=== PATIENT | female | born 1940 | race Caucasian/White ===

== ENCOUNTER 2021-03-26 06:59 | Inpatient (IN) ==
--- NOTE | 2021-03-26 08:14 | History & Physical Bridge Note ---
Date of Service March 26, 2021 History & Physical Bridge Note I have examined the patient, reviewed the History & Physical and in the interval since the performance of the History & Physical I have noted the following changes of clinical significance: no changes noted I have explained the risk, benefit and intent of the cardiac catheterization to her and she is willing to proceed.
--- NOTE | 2021-03-26 08:14 | Pre Anesthesia Assessment ---
Date of Service March 26, 2021 Pre Sedation Assessment Vital Signs Temp Pulse Resp BP Pulse Ox 03/26/21 07:24 36.7 C 57 L 16 170/85 H 98 Pre-Sedation Airway Assessment Smoking Status: Never smoker Hx Sleep Apnea: No Short, Thick Neck: No Thyromental Distance: > or= 3.5 Finger Breadths Oral Cavity: + WNL Mallampati Class: III ASA: ASA3 NPO Status Date of Last Intake of Fluids: 03/25/21 Time of Last Intake of Fluids: 22:00 Date of Last Intake of Solid Food: 03/25/21 Time of Last Intake of Solid Foods: 22:00 Notes The planned sedation has been discussed with the patient. Informed Consent was obtained. I have identified the patient, determined the appropriateness of s edation and have assessed the patient immediately prior to the procedure. All medicine(s) and interventions are by my order.
[2021-03-26] MEDS ORDERED: SODIUM CHLORIDE 0.9% 1000ML 1,000 ML IV SCH ×2 (08:15→11:30)
[2021-03-26] MEDS ORDERED: MIDAZOLAM HCL 1 MG/ML 2ML VIAL ONE ×3 (08:20→09:51)
[2021-03-26] MEDS ORDERED: HEPARIN (PORCINE) 1000 UNIT/ML 10 ML (CATH LAB USE ONLY) ONE (08:20)
[2021-03-26] MEDS ORDERED: fentaNYL citrate 100 MCG/2 ML VIAL ONE (08:20)
[2021-03-26] MEDS ORDERED: NITROGLYCERIN/D5W 100MCG/ML 20ML SYR ONE (08:20)
[2021-03-26] MEDS ORDERED: niCARdipine HCL INJ 2.5 MG/ML 10 ML AMP ONE (08:20)
--- NOTE | 2021-03-26 09:06 | Cardiac Catheterization ---
Date of Service March 26, 2021 Cardiac Cath Report Cardiac Cath Report Procedure: 1. Left heart catheterization 2. Coronary angiography 3. Left ventriculogram History: This is a 81-year-old female with a history of paroxysmal atrial fibrillation and coronary artery disease. She underwent a cardiac catheterization in 2019. She had an FFR completed on the LAD which was negative. She also had coronary artery disease and a ramus branch from the left circumflex artery as well as the first OM. Medical therapy was decided. She has been having atypical chest pain recently and underwent a pharmacologic nuclear stress test that revealed ischemia in the inferior lateral myocardium consistent with the circumflex distribution. She was referred for cardiac catheterization. Procedure summary: After informed consent was obtained the patient was brought to the cardiac catheterization lab where access was obtained using a retrograde Salinger technique from the right radial artery. Preformed 5 Czech diagnostic catheters were utilized for the coronary angiograms. A 5 Czech pigtail catheter was utilized for the left heart pressures and left ventriculogram. Following the procedure the patient underwent coronary intervention. ACC data: Start time 8:30 AM End time 8:52 AM Opening aortic pressure 120/50 Closing aortic pressure 148/56 LV pressure 128/10 Sedation 2 mg intravenous Versed IV fluid 50 cc normal saline Contrast 82 cc Optiray Fluoroscopy time 3 minutes Radiation 544 mGy DAP 54.85 Doe per centimeter squared Left dominant system AUC score 9 Coronary angiography: Selective injections of the left coronary artery revealed the left main trunk to be patent. There is a large ramus branch from the left circumflex which is subtotaled proximally the left circumflex artery is dominant. The first OM has a subtotaled proximal segment. The remainder the left circumflex is widely patent. The LAD extends to the apex of the heart. The LAD in its proximal and mid segment is diffusely diseased reaching approximately a 80 to 90% stenoses. The remainder the LAD is widely patent. Injections of the right coronary artery reveal it to be nondominant and widely patent. Left ventriculogram: Injections into the left ventricle reveal normal LV function with an estimated left ventricular ejection fraction of around 60%. The mitral valve is competent. The aortic root and ascending aorta have normal morphology. Summary: When comparing this study to the previous study of 2019 there is progression in the proximal and mid disease of the LAD as well as the first marginal branch. The ramus artery is unchanged. Recommendations: The cardiac catheterization films will be reviewed for possible coronary intervention and stenting of the left circumflex and LAD.
[2021-03-26] MEDS ORDERED: CLOPIDOGREL BISULFATE 300 MG TAB ONE (10:01)
--- NOTE | 2021-03-26 11:17 | Hospitalist Consultation ---
Date of Consultation March 26, 2021 Assessment & Plan (1) CAD (coronary artery disease): - S/p cardiac cath by Dr. Loredo on 03/26/2021, intervention by Dr. Dolan with PCI to proximal LAD and ostial OM2. - Continue BB, CCB, Statin - Start asa 81 mg daily and plavix daily - Cardiology consulted- appreciate recommendations (2) Atrial fibrillation: -Rate controlled on diltiazem 180 daily, sotalol 80 mg BID, anticoagulated with Eliquis 5 mg BID - Monitor set to alarm at 45 bmp as her HR is typically in the 50s per patient report. (3) Hx of hyperlipidemia: -Continue pitavastatin 2 g daily and icosapent ethyl cap daily, for CAD (4) Anxiety: - Cont lorazepam 0.5 mg at bedtime (5) Acid reflux: -Continue famotidine (6) Hypothyroidism: -Continue levothyroxine (7) Asthma: - Continue inhalers (8) DVT prophylaxis: - teds, anticoagulation with Eliquis, Plavix, baby aspirin as above CODE: Full code Dispo: From home, likely to remain in the hospital x 1-2 days Supervising Physician Co-Signing Physician Notes Patient seen and examined by me, care coordinated with Radha Ryan PA-C, please refer to note above for further detail. Patient is a 81-year-old female, with history of CAD, pAfib s/p ablation, hypothyroidism, who had abnormal stress test, now presented for cardiac cath and is status post stents to LAD and circumferential artery. She feels well, currently sitting up in bed, alert and oriented answering questions appropriately, eating lunch. She denies any chest pain or shortness of breath dizziness or lightheadedness. She is slightly bradycardic, in the 50s. Heart sounds otherwise regular, lung sounds clear to auscultation currently, without any wheezing rhonchi or crackles. Abdomen is soft nontender nondistended. Patient moves all 4 extremities without any difficulty. Skin is warm and dry and well-perfused. Continue home medications, in addition aspirin Plavix, and will also add her home inhalers. Continue to closely monitor. Further care per cardiology. MD Alexis History of Present Illness Reason for Consultation: Medical management Requesting Physician: Dr. Loredo Attending Physician: Javan Loredo DO History of Present Illness This is a 81 yo F with PMHx of atrial fibrillation, CAD, GERD, hypothyroidism, and anxiety. Mrs. Brice has previously underwent a cardiac catheterization in 2019. She had an FFR completed on the LAD which was negative as well as CAD in a ramus branch from the left circumflex artery is as well as the first OM. At that point medical therapy was decided upon. She had been having indigestion and found to have a thrush infection in her mouth and esophagus, which was treated, but with continued atypical chest pain. She was then referred for a pharmacological nuclear stress test which revealed ischemia in the inferior lateral myocardium consistent with circumflex distribution and prompted this cardiac cath. Pt is now s/p cardiac catheterization by Dr. Loredo on 03/26/2021, intervention by Dr. Dolan with placement of stents in the LAD and circumflex artery. She is doing well, no acute complaints currently. Pt denies chest pain, shortness of breath, abdominal pain, n/v/d/c. She feels she needs her Encruse inhaler due to some wheezing currently. She has been rinsing out her mouth after inhaler use since having the thrush infection. Allergies Allergy/AdvReac Type Severity Reaction Status Date / Time fenofibrate [From Antara] Allergy Unknown PER RECORDS Verified 04/07/20 11:16 ondansetron [From Zofran] Allergy Unknown PER RECORDS Verified 04/07/20 11:16 Sulfa (Sulfonamide Allergy Unknown "FIXED Verified 04/07/20 11:16 Antibiotics) DRUG REACTION" tamsulosin [From Flomax] Allergy Unknown AFIB AND Verified 04/07/20 11:16 ARRYTHMIA trazodone Allergy Unknown A.FIB/PALPI Verified 04/07/20 11:16 TATIONS Latex, Natural Rubber Allergy Rash Verified 04/07/20 11:16 amoxicillin [From Augmentin] AdvReac Unknown SEE NOTES Verified 04/07/20 11:16 clavulanic acid AdvReac Unknown SEE NOTES Verified 04/07/20 11:16 [From Augmentin] codeine AdvReac Unknown Nausea Verified 04/07/20 11:16 ezetimibe [From Zetia] AdvReac Unknown LEG CRAMPS Verified 04/07/20 11:16 levofloxacin [From Levaquin] AdvReac Unknown Nausea Verified 05/18/20 11:16 STATINS Allergy Unknown A FIB AND Uncoded 04/07/20 11:16 LEG CRAMPS VICRAYL AdvReac Unknown "SKIN Uncoded 04/07/20 11:16 PUSTULES" Home Medications Medication Instructions Recorded Confirmed Type estradiol [Estrace] 1 dose VAGINAL 3XWK 10/06/18 03/26/21 History levothyroxine 50 mcg PO DAILY 10/06/18 03/26/21 History lorazepam 0.5 mg PO HS 10/06/18 03/26/21 History solifenacin [Vesicare] 0.5 tab PO QAM 10/06/18 03/26/21 History zolpidem [Ambien] 1 tab PO HS 10/06/18 03/26/21 History Eliquis 5 mg PO BID 11/02/19 03/26/21 History icosapent ethyl 1 gram capsule 1 gm PO ONCE cap 04/07/20 03/26/21 History sotalol 80 mg tablet 80 mg PO BID 04/07/20 03/26/21 History DILT-CD 180 mg PO DAILY 03/26/21 03/26/21 History Livalo 2 mg PO DAILY 03/26/21 03/26/21 History azelastine 2 spray INHALATION BID 03/26/21 03/26/21 History calcium carbonate-vitamin D3 2 tab PO DAILY 03/26/21 03/26/21 History [Caltrate 600 plus D] cetirizine [Zyrtec] 10 mg PO DAILY 03/26/21 03/26/21 History famotidine 20 mg PO BID 03/26/21 03/26/21 History ipratropium bromide 2 puff INHALATION QID 03/26/21 03/26/21 History oxybutynin chloride 5 mg PO DAILY 03/26/21 03/26/21 History umeclidinium [Incruse Ellipta] 62.5 mcg INHALATION DAILY 03/26/21 03/26/21 History vit C-E-zinc fc-ycij-rey-zeax 1 cap PO DAILY 03/26/21 03/26/21 History [ICaps AREDS2] Patient History Medical History (Updated 03/26/21 @ 11:49 by Sherron Ryan PA-C) Acid reflux Anxiety Aortic regurgitation MILD Atrial fibrillation PAROXYSMAL; NO RECURRENCES ON LOOP RECORDS; ON FLECANIDE- PATIENT DECLINES "BLOOD THINNERS" Hx of hyperlipidemia Mitral regurgitation MILD Obesity Surgical History History of appendectomy History of colonoscopy History of hand surgery MULTIPLE History of tonsillectomy Family History (Updated 04/07/20 @ 13:00 by Zaynab Lilly) Other Heart disease Denies family history of Diabetes Lung disease Cancer Social History (Updated 04/07/20 @ 13:01 by Zaynab Lilly) Smoking Status: Never smoker packs per day: 1; Cigarettes Per Day: QUIT 1967; Hx Alcohol Use: No Hx Substance Use: No Preferred Language: Cameroonian Communication Ability: Effective Hydraulic Dredge Operator Required: No Beliefs That Will Affect Care: None Current Living Situation: Spouse Other Information That Helps Us Care for You: No Feels Safe at Home: Yes Safety Concerns: Feels Safe At This Time Assistive Devices: None Review of Systems Review of Systems: Constitutional: No fever, sweats or chills Eyes: No diplopia, no worsening or blurred vision ENT: normal hearing, no trouble swallowing Respiratory: No cough, sputum, dyspnea at rest or on exertion Cardiovascular: No chest pain, tightness or palpitations Abdomen: No pain, nausea, vomiting, diarrhea or constipation Musculoskeletal: No joint pain, calf pain, swelling Neurologic: No weakness, numbness/tingling, or balance problems Psychiatric: No anxiety or depression Skin: No rash or itch Physical Exam Physical Exam: General: awake, alert, no apparent distress Head: Normocephalic, atraumatic ENT: PERRL, EOMI, no pharyngeal exudate, mucous membranes moist Chest: Clear to auscultation, on room air, no adventitious breath sounds Cardiac: +Bradycardic with HR 51-53 at bedside, no murmur, no JVD, normal peripheral pulses, good capillary refill Abdominal: NABS x 4 quadrants, soft, nondistended, nontender to palpation, no rebound or guarding Extremities: R wrist TK band in place. Otherwise normal inspection, no peripheral edema or erythema, calfs nontender to palpation Psych: Normal mood and affect Neuro: AAO x 3, strength intact bilaterally and rated 5/5, no motor deficits, speech is clear, no peripheral sensory deficits Results & Data Results & Data ([facility]) Vital Signs (Past 12 Hours) Vital Signs Temp Pulse Pulse Resp BP BP Pulse Ox 03/26/21 10:48 36.5 C 52 L 14 181/73 H 94 03/26/21 10:30 54 L 18 180/70 H 96 03/26/21 10:15 55 L 18 192/65 H 96 03/26/21 07:24 36.7 C 57 L 16 170/85 H 98
[2021-03-26] MEDS ORDERED: ACETAMINOPHEN 325 MG TAB PO PRN (11:25)
--- NOTE | 2021-03-26 11:37 | Post Operative Brief Note ---
Cardiology Brief Post Op Date of Surgery March 26, 2021 Pre & Post Diagnosis Operation Date: 03/26/21 08:00 <No data on this case meets the specified criteria> Procedure -- Machine Records Units Supervisor Davie Dolan MD Shirrer Gibson Anderson Estimated Blood Loss 10 Findings Consistent with Post-Op Diagnosis PCI to proximal LAD (2.5 x 26 [place]; post-dilated with 3.0 NC). PCI to ostial OM2 (3.0 x 12 Tommy). Fluids -- Specimens Specimen Description: -- Anesthesia Type RN Sedation Complications none Disposition Accompanied Patient To Recovery: No Disposition: PCU Overlapping Procedure I was present for: the critical portions of procedure. I was immediately available: during the entire case. Back up surgeon: was not required during procedure.
[2021-03-26] MEDS: IPRATROPIUM BROMIDE HFA INHALER INH SCH ×2 (13:31→19:00)
[2021-03-26] MEDS: UMECLIDINIUM BROMIDE 62.5MCG/BLISTER 7 PUFFS/INHALER INH SCH (13:34)
--- NOTE | 2021-03-26 13:38 | Cardiac Catheterization ---
[facility] Data: Edge [place] Cardiac Status Clinical evaluation leading to the procedure CAD Presenation: Positive Stress Test and Unstable angina Anginal Classification: CCS III Heart Failure: No Cardiogenic Shock within 24 Hours: No Cardiac Arrest within 24 Hours: No Imaging Studies Past 6 Months: Yes Stress Studies Past 6 Months: Yes Stress Echocardiogram: Yes - Positive and Risk/Extent of Ischemia (Intermediate) Diagnostic Physicians Name: Davie Dolan MD Status: Elective Closure Device Percutaneous Entry Location: Radial Closure Device: Radial Band Recommendations: PCI without planned CABG PCI Indication: + Stress Test Lesion Segment Name: OM2 Culprit Artery: Yes Stenosis Prior to Rx (%): 95 Chronic Total Occlusion: No IVUS: No FFR: No Pre-Procedure ANGIE Flow: 3 Previously Treated Lesion: No Lesion Complexity: Non-High/Non-C Lesion Length (mm): 10 Thrombus Present: No Bifurcation Lesion: Yes Guidewire Across Lesion: Stenosis Post-Procedure (%): 0 Post-Procedure ANGIE Flow: 3 Devices(s) Deployed: Yes Yes Intraprocedure Events Significant Disection: No Perforation: No Cardiac Cath Procedure Full Procedure Date March 26, 2021 Pre-Procedure Diagnosis Pre-Procedure Diagnosis: Positive Stress Test and CAD AUC Score AUC Score: 7 Post-Procedure Diagnosis Post-Procedure Diagnosis: Severe CAD and Successful PCI Procedure(s) Performed Procedure(s) Performed: Coronary Angiography, Drug Eluting Stent and IVUS Septic Tank Service Technician Davie Dolan MD Play Reader(s) Tom Arreaga Estimated Blood Loss Estimated Blood Loss: 15 Medication(s) Medication(s): Fentanyl, Heparin, Lidocaine 1%, Nicardipine, Nitroglycerin and Versed Summary of Findings Indication: Accelerating angina, abnormal stress test Access: 6 Fr right radial artery Catheters: EBU 3.5 guide, telescope support catheter Findings: For full details of patient's coronary angiography please see cath report dictated by Dr. Loredo. Briefly, patient found to have multivessel disease including a 80% proximal to mid LAD stenosis, and 95% ostial OM 2 stenosis. Decision to proceed with PCI. -- PCI -- Antithrombotic therapy: Heparin, clopidogrel Procedure: Left main cannulated with EBU 3.5 guide Gas Meter Reader 50 wire passed across lesion into distal LAD Proximal to mid LAD lesion predilated with 2.5 compliant balloon [place] IVUS catheter placed into mid LAD. Pullback revealed severe mildly calcified disease extending from mid segment almost back to ostium. Left main without significant disease. Dilated lesion stented with 2.5 x 26 mm Tommy drug-eluting stent Stent post-dilated with 3.0 noncompliant balloon IC vasodilators administered for spasm Post procedure ANGIE 3 flow, stent well expanded with minimal residual stenosis and no apparent cardiac complications. Gas Meter Reader 50 wire redirected into circumflex and across to OM 2 stenosis Proximal OM 2 stenosis dilated with 2.5 balloon Second airplane pilot chief 50 wire placed into distal AV groove circumflex 3.0 x 12 mm Tommy drug-eluting stent placed at OM2 ostium Stent postdilated with stent balloon IC vasodilators administered for spasm Post procedure ANGIE 3 flow, stent well expanded with minimal residual stenosis and no apparent cardiac complications. Arterial Closure: TR band Summary: 1. Successful PCI of proximal to mid LAD with single drug-eluting stent (2.5 x 26 mm Tommy; postdilated with 3.0 NC). 2. Successful PCI of ostial/proximal OM 2 with a single drug-eluting stent (3.0 x 12 mm Tommy). 3. Residual severe high OM1 disease Recommendations: To PCU for continued monitoring Loaded with clopidogrel 600 mg in Edge Roller Continue triple therapy with aspirin, clopidogrel, Eliquis for 1 week. Then continue dual therapy with clopidogrel, Eliquis for at least 6 months. Consult cardiac Rehab If refractory symptoms to antianginal therapy in the future could consider PCI to high OM1. Hemodynamics Rest Ao:: 148/56/95 Final Ao: 134/55/90 LV: 128/10 Recommendations Recommendations: PCI without planned CABG Specimens Specimens: None Radiation Exposure (mGy) 3301 Contrast (mls) 150 Fluids (cc crystalloids) Fluids (cc crystalloids): 180 Drains Drains: none Anesthesia moderate [id number] Procedural Complication(s) None Disposition PCU I attest to the content of the Intraoperative Record and any orders documented therein. Any exceptions are noted below. [facility] Card Cath Procedure Codes Therapeutic Services & Ancillary Proc Procedure 1: Cardiovascular Tx and Anc Procedures: 85148 IV Ultrasound (Coronary or Graft) Moderate Sedation Procedure 1: Sedation/Anesthesia: 04387 Mod Sedation by the same physician; Ea [id number] Minutes Stenting Procedure 1: Cardiovascular Stent Procedures: 94925 Perc transcatheter placement of intracoronary stent(s), with ang Procedure 2: Cardiovascular Stent Procedures: 29736 Ea addl branch of a major coronary artery PG Care Time/CCT Total # of Minutes Spent Total Time Spent with Patient: Total time spent is greater than 50% in coordination of care (as documented) at patient's floor/unit and/or counseling patient:
--- NOTE | 2021-03-26 13:40 | Electrocardiogram Report ---
Test Reason : Blood Pressure : / mmHG Vent. Rate : 053 BPM Atrial Rate : 053 BPM P-R Int : 198 ms QRS Dur : 088 ms QT Int : 486 ms P-R-T Axes : 084 031 -30 degrees QTc Int : 456 ms Sinus bradycardia Cannot rule out Old Anteroseptal infarct Nonspecific ST abnormality Inferior leads Abnormal ECG When compared with ECG of 17-OCT-2018 09:47, [place] interval has decreased Borderline Criteria for Anteroseptal infarct is now Present Nonspecific ST abnormality now present Inferior leads Confirmed by Tapan Tovar ([id number]) on 03/26/2021 1:39:54 PM Referred By: Reta Zheng Confirmed By:Tapan Tovar
[2021-03-26] MEDS ORDERED: LORazepam 0.5 MG TAB PO SCH (21:00)
[2021-03-26] MEDS: FAMOTIDINE 20 MG TAB PO SCH (21:24)
[2021-03-26] MEDS: SOTALOL HCL 80 MG TAB PO SCH (21:25)
[2021-03-26] MEDS: APIXABAN 5 MG TABLET PO SCH (21:25)
[2021-03-26] MEDS ORDERED: ZOLPIDEM TARTRATE 5 MG TAB PO PRN (23:25)
[2021-03-27] MEDS: IPRATROPIUM BROMIDE HFA INHALER INH SCH ×2 (07:04→11:09)
[2021-03-27 07:06] LABS: Basophils # (auto) 0.04 K/uL (0-0.2); Basophils % (auto) 0.5 %; Eosinophils # (auto) 0.19 K/uL (0-0.5); Eosinophils % (auto) 2.2 %; Hematocrit (blood only) 36.8 % (37-47); Hemoglobin 13.1 g/dL (12.0-16.0); Immature Granulocytes # (auto) 0.03 K/uL (0.00-0.02); Immature Granulocytes % (auto) 0.3 %; Lymphocytes # (auto) 2.03 K/uL (1.2-3.4); Lymphocytes % (auto) 23.3 %; Mean Corpuscular Hemoglobin 32.3 pg (25-34); Mean Corpuscular Hgb Conc 35.6 g/dL (32-36); Mean Corpuscular Volume 90.6 fL (80-100); Mean Platelet Volume 10.2 fL (7.4-10.4); Monocytes # (auto) 1.39 K/uL (0.11-0.59); Neutrophils # (auto) 5.03 K/uL (1.4-6.5); Neutrophils % (auto) 57.7 %; Platelet Count 209 K/uL (130-400); RDW Coefficient of Variation 13.4 % (11.5-14.5); RDW Standard Deviation 44.2 fL (36.4-46.3); Red Blood Count 4.06 M/uL (4.2-5.4); White Blood Count 8.71 K/uL (4.8-10.8)
[2021-03-27 07:33] LABS: BUN Creatinine Ratio 15.3 (10-20); Calcium 8.6 mg/dl (8.5-10.1); Creatinine Clr Calc Pharmacy 66.7 ml/min; Est GFR (African American) 86.5; Est GFR (Non-African American) 74.6; Potassium 3.5 mmol/L (3.5-5.1)
[2021-03-27] MEDS: APIXABAN 5 MG TABLET PO SCH (08:30)
[2021-03-27] MEDS: FAMOTIDINE 20 MG TAB PO SCH (08:31)
[2021-03-27] MEDS: UMECLIDINIUM BROMIDE 62.5MCG/BLISTER 7 PUFFS/INHALER INH SCH (08:31)
[2021-03-27] MEDS: SOTALOL HCL 80 MG TAB PO SCH (08:32)
[2021-03-27] MEDS ORDERED: dilTIAZem HCL 180 MG CAPCR PO SCH (09:00)
[2021-03-27] MEDS ORDERED: CLOPIDOGREL BISULFATE 75 MG TAB PO SCH (09:00)
[2021-03-27] MEDS ORDERED: ASPIRIN 81 MG ECTAB PO SCH (09:00)
--- NOTE | 2021-03-27 09:08 | Electrocardiogram Report ---
Test Reason : Blood Pressure : / mmHG Vent. Rate : 052 BPM Atrial Rate : 052 BPM P-R Int : 210 ms QRS Dur : 092 ms QT Int : 478 ms P-R-T Axes : 080 015 005 degrees QTc Int : 444 ms Sinus bradycardia with 1st degree A-V block Old Septal infarct (cited on or before 26-MAR-2021) Abnormal ECG When compared with ECG of 26-MAR-2021 10:26, T wave inversion no longer evident in Inferior leads Confirmed by Tapan Tovar ([id number]) on 03/27/2021 9:07:52 AM Referred By: Reta Zheng Confirmed By:Tapan Tovar
--- NOTE | 2021-03-27 09:55 | Cardiology Progress Note ---
Date of Service March 27, 2021 Assessment & Plan (1) CAD (coronary artery disease): (2) Atrial fibrillation: (3) Stented coronary artery: Patient is doing well and can be discharged from the hospital with outpatient follow-up. I would continue her current medications including aspirin, Plavix and Eliquis after discharge. We will discontinue the aspirin after her first follow-up at the clinic. She would like to start cardiac rehab. She prefers to do the cardiac rehab at [facility] in [place] which is close to her home. Admission and Anticipated Discharge Date Admission Date: March 26, 2021 Subjective The patient had an uneventful night. All questions were answered this morning. Review of Systems Review of Systems: All systems reviewed & are unremarkable except as noted in Subjective Physical Exam Physical Exam: General: no acute distress and stated age Head: normocephalic, no masses, lesions, tenderness or abnormalities Eyes: conjunctiva are pink and non-injected, sclera clear Neck: supple, no adenopathy, no bruits, normal jugular venous pulse, no hepatojugular reflux Chest: normal shape and normal respiratory effort Lungs: clear to auscultation and percussion Cardiac Exam: - regular rate & rhythm, no murmurs gallops or rubs - normal S1, normal S2 Pulses: 2(+) throughout Abdomen: abdomen soft, non-tender, no abnormal masses and no hepatosplenomegaly Musculoskeletal: no gait disturbance, no joint inflammation, no deforming arthritis Extremities: no edema and no cyanosis Neuro: grossly normal exam Results & Data ([facility]) Vital Signs (Past 12 Hours) Vital Signs Temp Pulse Pulse Pulse Resp BP BP 03/27/21 07:58 37.1 C 66 18 148/72 H 03/27/21 07:04 86 16 03/27/21 03:23 36.9 C 64 18 136/73 03/27/21 00:00 58 L 03/26/21 23:10 36.8 C 59 L 16 161/82 H Pulse Ox 03/27/21 07:58 95 03/27/21 07:04 95 03/27/21 03:23 94 03/27/21 00:00 03/26/21 23:10 95 Laboratory Results Laboratory Results - last 24 hr 03/26/21 03/26/21 03/27/21 09:21 16:18 06:52 WBC 8.71 RBC 4.06 L Hgb 13.1 Hct 36.8 L MCV 90.6 MCH 32.3 MCHC 35.6 RDW Std Deviation 44.2 RDW Coeff of Waldo 13.4 Plt Count 209 MPV 10.2 Immature Gran % (Auto) 0.3 Neut % (Auto) 57.7 Lymph % (Auto) 23.3 Luna % (Auto) 16.0 Eos % (Auto) 2.2 Baso % (Auto) 0.5 Neut # (Auto) 5.03 Lymph # (Auto) 2.03 Luna # (Auto) 1.39 H Eos # (Auto) 0.19 Baso # (Auto) 0.04 Immature Gran # (Auto) 0.03 H Activ Coag Time Kaolin 263 H Sodium Potassium Chloride Carbon Dioxide Anion Gap BUN Creatinine Est Cr Clr Drug Dosing Est GFR ( Amer) Est GFR (Non-Af Amer) BUN/Creatinine Ratio Glucose POC Glucose 103 H Calcium 03/27/21 06:52 WBC RBC Hgb Hct MCV MCH MCHC RDW Std Deviation RDW Coeff of Waldo Plt Count MPV Immature Gran % (Auto) Neut % (Auto) Lymph % (Auto) Luna % (Auto) Eos % (Auto) Baso % (Auto) Neut # (Auto) Lymph # (Auto) Luna # (Auto) Eos # (Auto) Baso # (Auto) Immature Gran # (Auto) Activ Coag Time Kaolin Sodium 144 Potassium 3.5 Chloride 113 H Carbon Dioxide 26 Anion Gap 5.0 BUN 12 Creatinine 0.76 Est Cr Clr Drug Dosing 66.7 Est GFR ( Amer) 86.5 Est GFR (Non-Af Amer) 74.6 BUN/Creatinine Ratio 15.3 Glucose 97 POC Glucose Calcium 8.6 Medications Administered Current Inpatient Medications Acetaminophen (Acetaminophen 325 Mg Tab) 650 mg PO Q4H PRN PRN Reason: MILD Pain (Scale 1,2,3) Stop: 04/25/21 11:24 Apixaban (Apixaban 5 Mg Tablet) 5 mg PO BID [facility] Stop: 04/25/21 20:59 Last Admin: 03/27/21 08:30 Dose: 5 mg Documented by: Aspirin (Aspirin 81 Mg Ectab) 81 mg PO QAM [facility] Stop: 04/26/21 08:59 Last Admin: 03/27/21 08:32 Dose: 81 mg Documented by: Clopidogrel Bisulfate (Clopidogrel Bisulfate 75 Mg Tab) 75 mg PO QAM [facility] Stop: 04/26/21 08:59 Last Admin: 03/27/21 08:32 Dose: 75 mg Documented by: Diltiazem HCl (Diltiazem Hcl 180 Mg Capcr) 180 mg PO DAILY JEAN Stop: 04/26/21 08:59 Last Admin: 03/27/21 08:32 Dose: 180 mg Documented by: Famotidine (Famotidine 20 Mg Tab) 20 mg PO BID JEAN Stop: 04/25/21 20:59 Last Admin: 03/27/21 08:31 Dose: 20 mg Documented by: Ipratropium Blanchard (Ipratropium Blanchard Hfa Inhaler) 2 puffs INH QIDR [facility] Stop: 04/25/21 14:59 Last Admin: 03/27/21 07:04 Dose: 2 puffs Documented by: Lorazepam (Lorazepam 0.5 Mg Tab) 0.5 mg PO HS [facility] Stop: 04/25/21 20:59 Last Admin: 03/26/21 21:19 Dose: 0.5 mg Documented by: Miscellaneous (Icosapent Ethyl [Vascepa] 1 Gram Capsule~Order Awaiting Action) 1 ea N/A QS [facility] Stop: 04/25/21 15:59 Last Admin: 03/27/21 08:30 Dose: Not Given Documented by: Miscellaneous (Pitavastatin 2 Mg~Order Awaiting Action) 1 ea N/A QS [facility] Stop: 04/25/21 15:59 Last Admin: 03/27/21 08:30 Dose: Not Given Documented by: Sotalol HCl (Sotalol Hcl 80 Mg Tab) 80 mg PO BID JEAN Stop: 04/25/21 20:59 Last Admin: 03/27/21 08:32 Dose: 80 mg Documented by: Umeclidinium Blanchard (Umeclidinium Blanchard 62.5mcg/Blister 7 Puffs/Inhaler) 1 puffs INH DAILY JEAN Stop: 04/25/21 12:14 Last Admin: 03/27/21 08:31 Dose: 1 puffs Documented by: Zolpidem Tartrate (Zolpidem Tartrate 5 Mg Tab) 5 mg PO HS PRN PRN Reason: Sleep Stop: 04/25/21 23:24 Last Admin: 03/26/21 23:41 Dose: 5 mg Documented by:
--- NOTE | 2021-03-27 12:07 | Hospitalist Progress Note ---
Date of Service March 27, 2021 Assessment & Plan (1) CAD (coronary artery disease): S/p cardiac cath by Dr. Loredo on 03/26/2021, intervention by Dr. Dolan with PCI to proximal LAD and ostial OM2. Continue aspirin, plavix and eliquis on discharge Cardiology will discontinue the aspirin at the next office visit in 1 week Statin intolerant Continue Icosapent ethyl Asymptomatic currenntly Will need to refer to cardiac rehab Follow up with cardiology in 1-2 weeks Pt was advised to monitor for abnormal bleeding OK from cardiology standpoint to discharge home (2) Atrial fibrillation: Rate controlled on diltiazem 180 daily, sotalol 80 mg BID, Continue anticoagulate with Eliquis 5 mg BID (3) Hx of hyperlipidemia: Continue icosapent ethyl cap daily, for CAD (4) Anxiety: Cont lorazepam 0.5 mg at bedtime (5) Acid reflux: Continue famotidine (6) Hypothyroidism: Continue levothyroxine (7) Asthma: Continue inhalers Asymptomatic (8) DVT prophylaxis: - teds, anticoagulation with Eliquis, Plavix, baby aspirin as above CODE: Full code Dispo: Discharge home today Admission and Anticipated Discharge Date Admission Date: March 26, 2021 Subjective Pt was seen and examined for follow of chest pain Sitting in chair with no distress Pt said that she feels fine She said that she does not have any pain Denies any chest pain, palpitation, dizziness and SOB Review of Systems Review of Systems: All systems reviewed & are unremarkable except as noted in Subjective Physical Exam Physical Exam: General- No acute distress Head- atraumatic Eyes- PERRL, EOMI, ENT- oropharynx clear Neck- supple, no JVD Lungs- clear to auscultation Heart- regular rhythm; no murmur Abdomen- normal bowel sounds, soft, nontender Extremities- no calf tenderness, No hematoma in right wrist area Neuro- alert, oriented x 3; PERRL, EOMI; no facial palsy; no dysarthria Skin- warm & dry Results & Data Results & Data ([facility]) Vital Signs (Past 12 Hours) Vital Signs Temp Pulse Pulse Pulse Resp BP BP 03/27/21 11:10 54 L 16 03/27/21 08:00 60 03/27/21 07:58 37.1 C 66 18 148/72 H 03/27/21 07:04 86 16 03/27/21 03:23 36.9 C 64 18 136/73 Pulse Ox 03/27/21 11:10 95 03/27/21 08:00 03/27/21 07:58 95 03/27/21 07:04 95 03/27/21 03:23 94
--- NOTE | 2021-04-09 09:23 | Discharge Summary ---
Date of Service March 27, 2021 Admission HPI Per Admitting Provider This is a 81 yo F with PMHx of atrial fibrillation, CAD, GERD, hypothyroidism, and anxiety. Mrs. Brice has previously underwent a cardiac catheterization in 2019. She had an FFR completed on the LAD which was negative as well as CAD in a ramus branch from the left circumflex artery is as well as the first OM. At that point medical therapy was decided upon. She had been having indigestion and found to have a thrush infection in her mouth and esophagus, which was treated, but with continued atypical chest pain. She was then referred for a pharmacological nuclear stress test which revealed ischemia in the inferior lateral myocardium consistent with circumflex distribution and prompted this cardiac cath. Pt is now s/p cardiac catheterization by Dr. Loredo on 03/26/2021, intervention by Dr. Dolan with placement of stents in the LAD and circumflex artery. She is doing well, no acute complaints currently. Pt denies chest pain, shortness of breath, abdominal pain, n/v/d/c. She feels she needs her Encruse i nhaler due to some wheezing currently. She has been rinsing out her mouth after inhaler use since having the thrush infection. Admission Exam Per Admitting Provider General: awake, alert, no apparent distress Head: Normocephalic, atraumatic ENT: PERRL, EOMI, no pharyngeal exudate, mucous membranes moist Chest: Clear to auscultation, on room air, no adventitious breath sounds Cardiac: +Bradycardic with HR 51-53 at bedside, no murmur, no JVD, normal peripheral pulses, good capillary refill Abdominal: NABS x 4 quadrants, soft, nondistended, nontender to palpation, no rebound or guarding Extremities: R wrist TK band in place. Otherwise normal inspection, no peripheral edema or erythema, calfs nontender to palpation Psych: Normal mood and affect Neuro: AAO x 3, strength intact bilaterally and rated 5/5, no motor deficits, speech is clear, no peripheral sensory deficits Principal Diagnosis (1) CAD (coronary artery disease): (2) Atrial fibrillation: (3) Stented coronary artery: (4) Chest pain Discharge Exam General- No acute distress Head- atraumatic Eyes- PERRL, EOMI, ENT- oropharynx clear Neck- supple, no JVD Lungs- clear to auscultation Heart- regular rhythm; no murmur Abdomen- normal bowel sounds, soft, nontender Extremities- no calf tenderness, No hematoma in right wrist area Neuro- alert, oriented x 3; PERRL, EOMI; no facial palsy; no dysarthria Skin- warm & dry Discharge Data Allergies Allergy/AdvReac Type Severity Reaction Status Date / Time fenofibrate [From Antara] Allergy Unknown PER RECORDS Verified 04/07/20 11:16 ondansetron [From Zofran] Allergy Unknown PER RECORDS Verified 04/07/20 11:16 Sulfa (Sulfonamide Allergy Unknown "FIXED Verified 04/07/20 11:16 Antibiotics) DRUG REACTION" tamsulosin [From Flomax] Allergy Unknown AFIB AND Verified 04/07/20 11:16 ARRYTHMIA trazodone Allergy Unknown A.FIB/PALPI Verified 04/07/20 11:16 TATIONS Latex, Natural Rubber Allergy Rash Verified 04/07/20 11:16 amoxicillin [From Augmentin] AdvReac Unknown SEE NOTES Verified 04/07/20 11:16 clavulanic acid AdvReac Unknown SEE NOTES Verified 04/07/20 11:16 [From Augmentin] codeine AdvReac Unknown Nausea Verified 04/07/20 11:16 ezetimibe [From Zetia] AdvReac Unknown LEG CRAMPS Verified 04/07/20 11:16 levofloxacin [From Levaquin] AdvReac Unknown Nausea Verified 04/07/20 11:16 STATINS Allergy Unknown A FIB AND Uncoded 04/07/20 11:16 LEG CRAMPS VICRAYL AdvReac Unknown "SKIN Uncoded 04/07/20 11:16 PUSTULES" Consultations 03/26/21 10:00 Consult Hospitalist Routine 03/26/21 11:31 Consult Cardiac Rehabilitation Routine Procedures Performed Operation Date: 03/26/21 08:00 Actual Procedures p Drug Eluting Stent SGl Vessel - Dieudonne Dolan MD p Cath, Left with Cors and Vent - Javan Loredo DO s Cineradiography w/Routine Exam - Javan Loredo DO s Drug Eluting Stent each ADDTL Vessel - Javan Loredo DO s IVUS Coronary Single Vessel - Dieudonne Dolan MD Ordered Studies 03/26/21 07:13 CL Cath Imgs for PACS use only Routine 03/26/21 10:04 CL IVUS Coronary Single Vessel Routine Hospital Course (1) CAD (coronary artery disease): S/p cardiac cath by Dr. Loredo on 03/26/2021, intervention by Dr. Dolan with PCI to proximal LAD and ostial OM2. Continue aspirin, plavix and eliquis on discharge Cardiology will discontinue the aspirin at the next office visit in 1 week Statin intolerant Continue Icosapent ethyl Asymptomatic currenntly Will need to refer to cardiac rehab Follow up with cardiology in 1-2 weeks Pt was advised to monitor for abnormal bleeding OK from cardiology standpoint to discharge home (2) Atrial fibrillation: Rate controlled on diltiazem 180 daily, sotalol 80 mg BID, Continue anticoagulate with Eliquis 5 mg BID (3) Hx of hyperlipidemia: Continue icosapent ethyl cap daily, for CAD (4) Anxiety: Cont lorazepam 0.5 mg at bedtime (5) Acid reflux: Continue famotidine (6) Hypothyroidism: Continue levothyroxine (7) Asthma: Continue inhalers Asymptomatic (8) DVT prophylaxis: - teds, anticoagulation with Eliquis, Plavix, baby aspirin as above CODE: Full code Dispo: Discharge home today Total Time Total Time Spent Total Time Spent (In Minutes): 35 minutes Total Time Includes: Examination of the Patient, Discharge Planning, Medication Reconciliation, Communication With Other Providers and Other Discharge Plan Discharge Items Patient Disposition: Home - Self-Care Reason For Visit: Abnormal Nuclear Stress Discharge Diagnosis: (1) CAD (coronary artery disease): (2) Atrial fibrillation: (3) Stented coronary artery: (4) Chest pain Activity: As commented below Non-emergency contact: Primary Care Provider and Automatic Lathe Setter Call non-emergency contact if: you have any medication questions Follow-up/Referrals: Shahram Euceda DO [Primary Care Provider] - (Date & Time 04/01/2021 11:00 AM Provider Tapan Sood MD Department Family [facility] ) Diet: Heart Healthy Addtl Attending Provider Instructions: Follow up with your primary care provider Dr. Sood (Dr. Euceda's colleague) on 04/01/2021 at 11:00 AM Follow up with your cardiology within 1-2 weeks (office will call you for the appointment) Your provider or cardiology will refer you for the cardiac rehab Continue aspirin, Plavix and Eliquis after discharge. Cardiology will discontinue the aspirin after her first follow-up at the clinic. Monitor for any abnormal bleeding if any abnormal bleeding occurs, please seek medical attention or notify your provider Avoid any other NSAIDS such as (motrin aleve, Ibuprofen, Naproxen, Advil , ... ) due to increase risk of bleeding Fall precaution Increase your activity gradually as tolerated Keep the area for the cardiac cath clean and dry to avoid any infection Do not use creams, lotions or ointment on the wound site Do not take a bath, tub soak, go in a Jacuzzi, or swim in a pool or sagastume for one week after the procedure. Do not participate in strenuous activities for 3 days after the procedure. Gradually increase your activities until you reach your normal activity level within two days after the procedure. Avoid heavy lifting (more than 10 pounds) and pushing or pulling heavy objects for the first 5 days after the procedure. Pending Studies at Discharge: No Stand-Alone Forms: My [facility], Smoking Cessation Medications and DC Order Prescriptions: New clopidogrel 75 mg Tablet 75 mg PO QAM 30 Days Qty: 30 RF: 0 aspirin 81 mg Tablet,Delayed Release (Dr/Ec) 81 mg PO QAM 30 Days Qty: 30 RF: 0 Continued sotalol [Betapace] 80 mg tablet 80 mg PO BID RF: 0 Vascepa 1 gram capsule 1 gm PO ONCE RF: 0 lorazepam 0.5 mg Tablet 0.5 mg PO HS RF: 0 estradiol [Estrace] 0.01 % (0.1 mg/gram) Cream 1 dose VAGINAL [id number] RF: 0 zolpidem [Ambien] 10 mg Tablet 1 tab PO HS RF: 0 solifenacin [Vesicare] 5 mg Tablet 0.5 tab PO QAM RF: 0 levothyroxine 50 mcg Tablet 50 mcg PO DAILY RF: 0 Eliquis 5 mg Tablet 5 mg PO BID RF: 0 famotidine 20 mg Tablet 20 mg PO BID RF: 0 oxybutynin chloride 5 mg Tablet 5 mg PO DAILY RF: 0 ipratropium bromide 17 mcg/actuation Hfa Aerosol Inhaler 2 puff INHALATION QID RF: 0 Caltrate 600 plus D 600 mg (1,500 mg)-800 unit Tablet,Chewable 2 tab PO DAILY RF: 0 Incruse Ellipta 62.5 mcg/actuation Blister With Device 62.5 mcg INHALATION DAILY RF: 0 ICaps AREDS2 250 mg-200 unit -12.5 mg-1 mg Capsule 1 cap PO DAILY RF: 0 DILT-CD 180 mg PO DAILY RF: 0 Livalo 2 mg PO DAILY RF: 0 azelastine 2 spray inhalation BID RF: 0 Zyrtec 10 mg Capsule 10 mg PO DAILY RF: 0 Discharge Orders: Discharge Order (Routine); Ordered 03/27/21 Ordered By: Vincent Schultz Admission Data Admit Date/Time: 03/26/21 09:59 Attending Provider: Javan Loredo Admit Provider: Javan Loredo Primary Care Provider: Shahram Euceda Other Providers: Anjum Izaguirre Other Interventions: Discharge Summary Assessment (RN) Last Done: 03/27/21 12:21
== END 2021-03-27 12:45 | disposition home or self-care (01) | DRG 247 ==
LOC: CC 06:59 → 1E 09:59 → 2S 14:46
DX: Z87.891 Personal history of nicotine dependence; K21.9 Gastro-esophageal reflux disease without esophagitis; Z79.899 Other long term (current) drug therapy; Z88.5 Allergy status to narcotic agent; Z91.040 Latex allergy status; F41.9 Anxiety disorder, unspecified; I25.10 Atherosclerotic heart disease of native coronary artery without angina pectoris; Z79.01 Long term (current) use of anticoagulants; J45.909 Unspecified asthma, uncomplicated; Z88.1 Allergy status to other antibiotic agents; Z88.2 Allergy status to sulfonamides; I48.0 Paroxysmal atrial fibrillation; Z95.5 Presence of coronary angioplasty implant and graft; E78.5 Hyperlipidemia, unspecified; E03.9 Hypothyroidism, unspecified; Z88.8 Allergy status to other drugs, medicaments and biological substances